=== PATIENT | female | born 1980 | race Caucasian/White ===

== ENCOUNTER → 2020-03-04 | Outpatient (CLI) | payer BC ==
--- NOTE | 2020-03-04 15:38 | US ---
EXAMINATION TYPE: US pelvic complete DATE OF EXAM: 03/04/2020 COMPARISON: NONE CLINICAL HISTORY: N83.20 Ovarian Cyst. Patient states history of left sided ovarian cyst TECHNIQUE: . Transabdominal sonographic images of the pelvis were acquired. Date of LMP: 03/04/2020 EXAM MEASUREMENTS: Uterus: 9.9 x 4.6 x 5.4 cm Endometrial Stripe: 0.7 cm Right Ovary: 4.3 x 2.5 x 3.0 cm Left Ovary: 2.5 x 2.0 x 1.1 cm 1. Uterus: Anteverted Hypoechoic area visualized measuring 1.1 x 0.9 x 0.9 cm 2. Endometrium: wnl 3. Right Ovary: Follicle visualized 4. Left Ovary: Cystic area visualized adjacent to left ovary measuring 4.1 x 2.8 x 3.7 cm 5. Bilateral Adnexa: See above 6. Posterior cul-de-sac: Tiny amount of free fluid visualized There is 1.0 cm posterior fundal intramural fibroid. Tiny amount of free fluid in pelvic cul-de-sac i s nonspecific presumed physiologic. Right ovary within normal limits. Left ovary seen and felt within normal limits. Adjacent to left ova ry there is a 4.2 x 2.8 x 3.7 oval anechoic lesion with increased through transmission having some de pendent echoes. Probable some debris in a paraovarian cyst. IMPRESSION: There is suspected 4.1 cm left adnexal thin-walled cyst with some dependent debris favor paraovarian as it appears distinct from the left ovary on images saved.
== END | disposition home or self-care (01) ==
LOC: RADUSWWP 14:54
PROVIDERS: ATTEND Obstetrics & Gynecology
DX: N83.202 Unspecified ovarian cyst, left side (principal)
CPT/HCPCS: 76856